=== PATIENT | male | born 1960 | race Caucasian/White ===

== ENCOUNTER 2017-09-22 15:29 | Emergency (ER) | payer BC ==
[~2017-09-22] VITALS: Ht 185.4 cm; Wt 143.8 kg
[~2017-09-22 15:29] MED LIST: MELOXICAM15 MG PO; MOTRIN600 MG PO; NOHOMEMEDS; PERCOCET 5/31 TABLET PO
[2017-09-22 17:13] LABS: HEMATOCRIT 47.5 % (38.0-50.0); MCH 30.7 PG (29.0-34.0); MCHC 34.1 G/DL (30.0-36.0); MCV 90.1 FL (86-99); MEAN PLAT.VOLUME 10.8 uM^3 (9.0-12.4); PLATELET COUNT 137 K/uL (156-360); RBC DIS.WIDTH-CV 13.8 % (11.8-14.6); RBC DIS.WIDTH-SD 45.6 % (39-53); RED BLOOD COUNT 5.27 M/uL (4.00-5.50); WHITE BLOOD COUNT 10.2 K/uL (4.1-10.2)
[2017-09-22 17:33] LABS: TROP-I INTERPRETATION NEGATIVE; TROPONIN-I 0.01 ng/mL (0.0-0.30)
[2017-09-22 17:53] LABS: INTER. NORMALIZED RATIO 1.1; PROTHROMBIN TIME 12.2 SEC (10.2-12.9)
[2017-09-22 17:55] LABS: CHLORIDE 104 mEq/L (99-109); POTASSIUM 3.9 mEq/L (3.7-5.4); SODIUM 138 mEq/L (136-147)
[2017-09-22 17:57] LABS: GLUCOSE 96 mg/dL (70-99)
[2017-09-22 17:59] LABS: ANION GAP 11 MEQ/L (2-14)
[2017-09-22 18:01] LABS: GFR ESTIMATE (CALCULATED) > 59 mL/min/ (58.99-99999)
[2017-09-22 18:02] LABS: UREA NITROGEN (BUN) 15 mg/dL (9-23)
[2017-09-22 18:26] LABS: ADD MIUA? NO; BILIRUBIN NEGATIVE; BLOOD NEGATIVE; COLOR YELLOW ((YELLOW)); GLUCOSE (STRIP) NEGATIVE; KETONES NEGATIVE; LEUKOCYTES NEGATIVE; NITRITE NEGATIVE; PROTEIN (STRIP) NEGATIVE; SPECIFIC GRAVITY 1.017 (1.000-1.030); UROBILINOGEN 0.2 MG/DL (0.2-1.0)
[2017-09-22] MEDS ORDERED: PERCOCET 5/31 TABLET PO (18:59)
[2017-09-22] MEDS ORDERED: ZOFRAN ODT4 MG PO (18:59)
[2017-09-22 19:50] VITALS: BP 138/79
== END 2017-09-22 19:52 | disposition home or self-care (01) ==
LOC: EME 15:29
PROVIDERS: Physician Assistant Medical
DX: S22.32XA Fracture of one rib, left side, initial encounter for closed fracture (principal); W11.XXXA Fall on and from ladder, initial encounter; Y93.89 Activity, other specified; Y92.008 Other place in unspecified non-institutional (private) residence as the place of occurrence of the external cause
CPT/HCPCS: 71100; 71260; 74177; 80048; 81003; 84484; 85027; 85610; 86850; 86900; 86901; 93005; 99281; 99285; J2405; J3010; J7040

== ENCOUNTER 2018-01-06 19:00 | Emergency (ER) | payer BC ==
[~2018-01-06] VITALS: Ht 185.4 cm; Wt 145.3 kg
[~2018-01-06 19:00] MED LIST changes: +ZOFRAN ODT4 MG PO
[2018-01-06 20:57] VITALS: BP 148/76
== END 2018-01-06 20:59 | disposition home or self-care (01) ==
LOC: EME → EDBD 19:00 → EME 19:00
DX: T18.128A Food in esophagus causing other injury, initial encounter (principal); X58.XXXA Exposure to other specified factors, initial encounter
CPT/HCPCS: 99281; 99285